=== PATIENT | male | born 1995 | race Caucasian/White ===

== ENCOUNTER 2018-05-20 08:05 | Emergency (ER) | payer OTHER ==
[~2018-05-20] VITALS: Ht 177.8 cm; Wt 64.9 kg
[~2018-05-20 08:05] MED LIST: ACET-8386 PO
[2018-05-20 08:10] VITALS: BP 138/92
--- NOTE | 2018-05-20 08:23 | NUR ---
PATIENT PRESENTS TO ED WITH c/o repeated n/v x yesterday, unable to tolerate any PO denies abdominal pain , denies fever, or bodyaches ---admits to have been smoking large amount of marijuana recently after being clean x 1 yr . SKIN IS PINK/WARM/DRY; AAOX4 WITH EVEN AND STEADY GAIT; LUNGS CLEAR BL; HR EVEN AND REGULAR; PT DENIES ANY FEVER, CP, SOB, OR COUGH AT THIS TIME; PATIENT STATES PAIN OF 0/10 AT THIS TIME; VSS; PATIENT POSITIONED FOR COMFORT; HOB ELEVATED; BEDRAILS UP X2; BED DOWN. ER MD MADE AWARE OF PT STATUS.
[2018-05-20] MEDS ORDERED: ONDANSETRON 4 MG/2 ML VIAL IVP ONE ×2 (08:30→09:25)
[2018-05-20] MEDS ORDERED: NACL 0.9% 1,000 ML IV ONE (08:30)
[2018-05-20 09:41] VITALS: BP 123/72
== END 2018-05-20 09:41 | disposition home or self-care (01) ==
LOC: MED 08:05
DX: T62.91XA Toxic effect of unspecified noxious substance eaten as food, accidental (unintentional), initial encounter (principal); R11.2 Nausea with vomiting, unspecified; Z79.891 Long term (current) use of opiate analgesic; Y92.89 Other specified places as the place of occurrence of the external cause
CPT/HCPCS: 96361; 96374; 96376; 99283; J2405; J7030